=== PATIENT | male | born 1965 | race Caucasian/White ===

== ENCOUNTER → 2024-05-05 | Outpatient (CLI) | payer OTHER, MEDICAID ==
[~2024-05-05] MED LIST: AMBIENPAK10 MG PO; AQUAZIDE H50 MG PO; BACTROBAN OINT22 GM PO; BENADRYL25 MG PO; CARDIZEM CD240 MG PO; CLINDAMYCIN HC300 MG PO; COREG3.125 MG PO; DOXYCYCLINE MO100 MG PO; HYDROCHLOROTHIA25 MG PO; KEFLEX500 MG PO; LASIX20 MG PO; LISINOPRIL40 MG PO; LYRICA50 MG PO; LYRICA75 MG PO; MOTRIN400 MG PO; NORVASC10 MG PO; ROBAXIN750 MG PO; TRAMADOL HCL50 MG PO; ULTRAM50 MG PO; VICODIN 5/500 505 MG PO; VICODIN 500 MG-1 TAB PO; VITAMIN D50000 I2 PO
== END | disposition home or self-care (01) ==
LOC: LAB 03:00
PROVIDERS: ATTEND Nurse Practitioner Primary Care
DX: R80.9 Proteinuria, unspecified (principal)